=== PATIENT | female | born 1970 | race Caucasian/White ===

== ENCOUNTER 2022-05-22 10:13 | Emergency (ER) | payer MEDICARE ==
[2022-05-22] MEDS ORDERED: Ketorolac Tromethamine 30 MG/ML VIAL ONE (13:15)
== END 2022-05-22 13:35 | disposition home or self-care (01) ==
LOC: ERS 10:13
DX: M25.562 Pain in left knee (principal); I10 Essential (primary) hypertension; F17.290 Nicotine dependence, other tobacco product, uncomplicated
CPT/HCPCS: 96372; J1885